=== PATIENT | male | born 1960 ===

== ENCOUNTER 2023-04-01 06:00 | Day surgery (SDC) | payer OTHER ==
[~2023-04-01] VITALS: Ht 170.2 cm; Wt 83.9 kg
[~2023-04-01 06:00] MED LIST: AMLODIPINE-OLM1 EAC2 PO; LOSART PO
== END 2023-04-01 13:45 | disposition home or self-care (01) ==
LOC: CIR.AMB 06:00 → EDSTATUS 07:30 → CIR.AMB 07:30 → SURG 07:30 → CIR.AMB 13:45
PROVIDERS: ATTEND Urology
DX: N40.1 Benign prostatic hyperplasia with lower urinary tract symptoms (principal); R33.0 Drug induced retention of urine; I10 Essential (primary) hypertension; E78.5 Hyperlipidemia, unspecified; Z20.822 Contact with and (suspected) exposure to COVID-19